=== PATIENT | female | born 1985 | race Caucasian/White ===

== ENCOUNTER 2018-03-25 10:58 | Emergency (ER) | payer SELFPAY ==
--- NOTE | 2018-03-25 11:36 | ER ---
Nurse's Notes [facility] Name: Tana Knight Age: 32 yrs Sex: Female : 1985 Arrival Date: 03/25/2018 Time: 11:02 Bed 20 Private MD: Diagnosis: Urinary tract infection, site not specified Presentation: 03/25 11:06 Presenting complaint: Patient states: "I have a UTI and I need antibiotics". Transition lk1 of care: patient was not received from another setting of care. Onset of symptoms was March 18, 2018. Risk Assessment: Do you want to hurt yourself or someone else? Patient reports no desire to harm self or others. Initial Sepsis Screen: Does the patient meet any 2 criteria? No. Patient's initial sepsis screen is negative. Does the patient have a suspected source of infection? No. Patient's initial sepsis screen is negative. Care prior to arrival: None. 11:06 Method Of Arrival: Ambulatory lk1 11:06 Acuity: RADHA 4 lk1 Triage Assessment: 11:07 General: Appears in no apparent distress. Behavior is calm, cooperative, appropriate lk1 for age. Pain: Complains of pain in suprapubic area Pain currently is 5 out of 10 on a pain scale. Quality of pain is described as burning. : Reports burning with urination, cramping, incontinence, pain urgency, urinary frequency. 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 - Social history:: Smoking status: Patient/guardian denies using tobacco. Screenin:20 Abuse screen: Denies threats or abuse. Nutritional screening: No deficits noted. em Tuberculosis screening: No symptoms or risk factors identified. Fall Risk None identified. Assessment: 11:20 General: Appears in no apparent distress. comfortable, Behavior is calm, cooperative. em Pain: Complains of pain in suprapubic area Pain currently is 5 out of 10 on a pain scale. Neuro: Level of Consciousness is awake, alert, obeys commands, Oriented to person, place, time, situation. Cardiovascular: Capillary refill < 3 seconds Patient's skin is warm and dry. Respiratory: Airway is patent Respiratory effort is even, unlabored, Respiratory pattern is regular, symmetrical. GI: Abdomen is flat, Patient currently denies pain. : Reports burning with urination, "pressure". EENT: No signs and/or symptoms were reported regarding the EENT system. Derm: Skin is intact, Skin is pink, warm \\T\\ dry. Musculoskeletal: Range of motion: intact in all extremities. 11:30 Reassessment: I agree with above assessment by Braeden Mckeon LVN. iw Vital Signs: 11:08 BP 122 / 90; Pulse 79; Resp 15; Temp 97.0(TE); Pulse Ox 100% on R/A; Weight 65.77 kg lk1 (R); Height 5 ft. 3 in. (160.02 cm) (R); Pain 4/10; 11:08 Body Mass Index 25.69 (65.77 kg, 160.02 cm) lk1 ED Course: 11:02 Patient arrived in ED. mr 11:07 Triage completed. lk1 11:08 [facility]C [facility] kb 11:08 Saturnino Rice MD is Attending Physician. kb 11:11 Arm band placed on right wrist. lk1 11:22 Braeden Mckeon LVN is Primary Nurse. em 11:57 Patient has correct armband on for positive identification. em 11:57 No provider procedures requiring assistance completed. Patient did not have IV access em during this emergency room visit. Administered Medications: 11:50 Drug: Macrobid 100 mg Route: PO; em 11:58 Follow up: Response: Medication administered at discharge. em 11:50 Drug: Pyridium 200 mg Route: PO; em 11:58 Follow up: Response: Medication administered at discharge. em Outcome: 11:36 Discharge ordered by MD. kb 11:58 Discharged to home ambulatory. em 11:58 Condition: good 11:58 Discharge instructions given to patient, Instructed on discharge instructions, follow up and referral plans. medication usage, Demonstrated understanding of instructions, follow-up care, medications, Prescriptions given X 2. 11:59 Patient left the ED. em Signatures: Kaylie Garcia FNP-C FNP-Leti Raphael mr Braeden Mckeon LVN LVN em Bekah Cavazos RN RN iw Kluge, Jenni, RN RN lk1
--- NOTE | 2018-03-25 11:36 | EDPHYS ---
Physician Documentation [facility] Name: Tana Knight Age: 32 yrs Sex: Female : 1985 Arrival Date: 03/25/2018 Time: 11:02 Bed 20 Private MD: ED Physician Saturnino Rice HPI: 03/25 11:31 This 32 yrs old Female presents to ER via Ambulatory with complaints of kb Urinary Problem. 11:34 The patient presents with urinary symptoms, dysuria, frequency. Onset: The kb symptoms/episode began/occurred 3 week(s) ago. Modifying factors: The symptoms are alleviated by nothing, the symptoms are aggravated by urinating. Associated signs and symptoms: Pertinent positives: cramping, dysuria, urinary frequency, Pertinent negatives: constipation, diarrhea, dyspareunia, fever, hematuria, nausea, vaginal bleeding, vaginal discharge, vomiting. Severity of symptoms: At their worst the symptoms were moderate, in the emergency department the symptoms are unchanged. The patient has not experienced similar symptoms in the past. The patient has not recently seen a physician. Pt states she started having some cramping to her lower abd a few days ago and yesterday started having UTI symptoms. Reports burning with urination and urinary frequency. . 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 - Social history:: Smoking status: Patient/guardian denies using tobacco. ROS: 11:31 Constitutional: Negative for fever, chills, and weight loss, Cardiovascular: Negative kb for chest pain, palpitations, and edema, Respiratory: Negative for shortness of breath, cough, wheezing, and pleuritic chest pain, Abdomen/GI: Negative for abdominal pain, nausea, vomiting, diarrhea, and constipation, Back: Negative for injury and pain, MS/Extremity: Negative for injury and deformity, Skin: Negative for injury, rash, and discoloration, Neuro: Negative for headache, weakness, numbness, tingling, and seizure. 11:31 : Positive for urinary symptoms, urinary frequency, burning with urination. Exam: 11:31 Constitutional: This is a well developed, well nourished patient who is awake, alert, kb and in no acute distress. Head/Face: Normocephalic, atraumatic. Chest/axilla: Normal chest wall appearance and motion. Nontender with no deformity. No lesions are appreciated. Cardiovascular: Regular rate and rhythm with a normal S1 and S2. No gallops, murmurs, or rubs. Normal PMI, no JVD. No pulse deficits. Respiratory: Lungs have equal breath sounds bilaterally, clear to auscultation and percussion. No rales, rhonchi or wheezes noted. No increased work of breathing, no retractions or nasal flaring. Abdomen/GI: Soft, non-tender, with normal bowel sounds. No distension or tympany. No guarding or rebound. No evidence of tenderness throughout. Back: No spinal tenderness. No costovertebral tenderness. Full range of motion. Skin: Warm, dry with normal turgor. Normal color with no rashes, no lesions, and no evidence of cellulitis. MS/ Extremity: Pulses equal, no cyanosis. Neurovascular intact. Full, normal range of motion. Neuro: Awake and alert, GCS 15, oriented to person, place, time, and situation. Cranial nerves II-XII grossly intact. Motor strength 5/5 in all extremities. Sensory grossly intact. Cerebellar exam normal. Normal gait. 11:31 Abdomen/GI: Palpation: pressure over suprapubic area upon palpation. Vital Signs: 11:08 BP 122 / 90; Pulse 79; Resp 15; Temp 97.0(TE); Pulse Ox 100% on R/A; Weight 65.77 kg lk1 (R); Height 5 ft. 3 in. (160.02 cm) (R); Pain 4/10; 11:08 Body Mass Index 25.69 (65.77 kg, 160.02 cm) lk1 MDM: 11:12 Patient medically screened. kb 11:32 Data reviewed: vital signs, nurses notes. Data interpreted: Pulse oximetry: on room air kb is 100 %. Interpretation: normal. Counseling: I had a detailed discussion with the patient and/or guardian regarding: the historical points, exam findings, and any diagnostic results supporting the discharge/admit diagnosis, lab results, the need for outpatient follow up, a family practitioner, to return to the emergency department if symptoms worsen or persist or if there are any questions or concerns that arise at home. 03/25 11:09 Order name: Urine Microscopic Only kb 03/25 11:46 Order name: Urine Dipstick--Ancillary (enter results) bd 03/25 11:09 Order name: Urine Test (obtain specimen); Complete Time: 11:45 kb 03/25 11:46 Order name: Urine --Ancillary (enter results) bd 03/25 11:09 Order name: Urine Dipstick-Ancillary (obtain specimen); Complete Time: 11:45 kb Administered Medications: 11:50 Drug: Macrobid 100 mg Route: PO; em 11:58 Follow up: Response: Medication administered at discharge. em 11:50 Drug: Pyridium 200 mg Route: PO; em 11:58 Follow up: Response: Medication administered at discharge. em Disposition: 14:34 Co-signature as Attending Physician, Saturnino Rice MD. rn Disposition: 03/25/18 11:36 Discharged to Home. Impression: Urinary tract infection, site not specified. - Condition is Stable. - Discharge Instructions: Urinary Tract Infection, [id number]. - Prescriptions for Pyridium 200 mg Oral Tablet - take 1 tablet by ORAL route every 8 hours for 3 days; 9 tablet. Macrobid 100 mg Oral Capsule - take 1 capsule by ORAL route every 12 hours for 7 days; 14 capsule. - Medication Reconciliation Form, Thank You Letter, Antibiotic Education, Prescription Opioid Use, Work release form form. - Follow up: Emergency Department; When: As needed; Reason: Worsening of condition. Follow up: Private Physician; When: 2 - 3 days; Reason: Recheck today's complaints, Continuance of care, Re-evaluation by your physician. Signatures: Dispatcher [employer] Kaylie Youngblood, VIDEO PHOTOGRAPHER-C VIDEO PHOTOGRAPHER-Ckb Braeden Mckeon, MATERIAL HANDLER FLOORPERSON MATERIAL HANDLER FLOORPERSON em Saturnino Rice MD MD rn Kluge, Leah, RN RN lk1 Corrections: (The following items were deleted from the chart) 11:59 11:36 03/25/2018 11:36 Discharged to Home. Impression: Urinary tract infection, site em not specified. Condition is Stable. Forms are Medication Reconciliation Form, Thank You Letter, Antibiotic Education, Prescription Opioid Use. Follow up: Emergency Department; When: As needed; Reason: Worsening of condition. Follow up: Private Physician; When: 2 - 3 days; Reason: Recheck today's complaints, Continuance of care, Re-evaluation by your physician. kb
[2018-03-25] MEDS ORDERED: NITROFURAN MACRO 100 MG CAP PO ONE (11:47)
[2018-03-25] MEDS ORDERED: PHENAZOPYRIDINE 100MG TAB PO ONE (11:47)
[2018-03-25 12:47] LABS: Urine Bacteria <20 /HPF (<20); Urine Culture Reflex Order NOT NEEDED; Urine RBC <5 /HPF (NONE SEEN)
[2018-03-25 13:11] LABS: Urine Blood NEGATIVE (NEG); Urine Glucose NEGATIVE (NEG); Urine Protein NEGATIVE (NEG); Urine Specific Gravity 1.015 (1.005-1.030); Urine pH 7.5 (5.0-7.0)
== END 2018-03-25 11:59 | disposition home or self-care (01) ==
LOC: ER 10:58
DX: N39.0 Urinary tract infection, site not specified (principal)
CPT/HCPCS: 81003; 81015; 81025; 99283

== ENCOUNTER 2021-05-26 02:28 | Emergency (ER) | payer SELFPAY ==
--- NOTE | 2021-05-26 05:14 | ER ---
Nurse's Notes [facility] Name: Tana Garcia Age: 35 yrs Sex: Female : 1985 Arrival Date: 05/26/2021 Time: 02:33 Bed 26 Private MD: Jeremiah Bain E Diagnosis: SARS-associated coronavirus as the cause of diseases classified elsewhere Presentation: 05/26 03:05 Chief complaint: Patient states: cough, congestion, loss of smell and taste, body em aches, coworker tested positive fot covid on symptoms stated 26 hours ago. Coronavirus screen: Client presents with at least one sign or symptom that may indicate coronavirus-19. Standard/surgical mask placed on the client. Provider contacted for isolation considerations. Ebola Screen: Patient negative for fever greater than or equal to 101.5 degrees Fahrenheit, and additional compatible Ebola Virus Disease symptoms Patient denies exposure to infectious person. Patient denies travel to an Ebola-affected area in the 21 days before illness onset. No symptoms or risks identified at this time. Resp Distress? No respiratory distress is noted at this time. Initial Sepsis Screen: Does the patient meet any 2 criteria? No. Patient's initial sepsis screen is negative. Does the patient have a suspected source of infection? No. Patient's initial sepsis screen is negative. Risk Assessment: Do you want to hurt yourself or someone else? Patient reports no desire to harm self or others. Onset of symptoms was May 26, 2021. 03:05 Method Of Arrival: Ambulatory em 03:05 Acuity: RADHA 4 em Historical: - Allergies: 03:08 No Known Allergies; em - PMHx: 03:08 None; em - PSHx: 03:08 None; em - Immunization history:: Client reports having NOT received the Covid vaccine. - Social history:: Smoking status: Patient denies any tobacco usage or history of. - Family history:: not pertinent. - Hospitalizations: : No recent hospitalization is reported. Screenin:05 Abuse screen: Denies threats or abuse. Nutritional screening: No deficits noted. em Tuberculosis screening: No symptoms or risk factors identified. Fall Risk None identified. Assessment: 03:05 General: Appears in no apparent distress. comfortable, Behavior is calm, cooperative, em appropriate for age, Reports fever for. Pain: Denies pain. Neuro: Level of Consciousness is awake, alert, obeys commands, Oriented to person, place, time, situation. Cardiovascular: Capillary refill < 3 seconds Patient's skin is warm and dry. Respiratory: Reports shortness of breath cough that is Airway is patent Respiratory effort is even, unlabored, Respiratory pattern is regular, symmetrical. GI: Patient currently denies nausea, vomiting. EENT: Nares are clear Oral mucosa is moist. Throat is clear Reports nasal congestion. Derm: Skin is intact, is healthy with good turgor, Skin is pink, warm \T\ dry. Musculoskeletal: Capillary refill < 3 seconds, Range of motion: intact in all extremities. Vital Signs: 03:05 Pulse 95; Resp 20; Temp 98.0; Pulse Ox 98% on R/A; Weight 68.04 kg; Height 5 ft. 3 in. em (160.02 cm); Pain 0/10; 03:12 BP 138 / 103; em 03:05 Body Mass Index 26.57 (68.04 kg, 160.02 cm) em ED Course: 02:33 Patient arrived in ED. es 02:34 Jeremiah Bain MD is Private Physician. es 03:05 Patient has correct armband on for positive identification. Bed in low position. em 03:08 Triage completed. em 03:08 Arm band placed on. em 03:43 Saturnino Rice MD is Attending Physician. rn 03:43 Braeden Mckeon RN is Primary Nurse. em 04:11 XRAY Chest (1 view) In Process Unspecified. EDMS 05:29 No provider procedures requiring assistance completed. Patient did not have IV access em during this emergency room visit. Administered Medications: 05:18 Drug: SOLU-Medrol (methylPREDNISolone sodium succinate) 125 mg Route: IM; Site: right em gluteus; 05:30 Follow up: Response: No adverse reaction em Outcome: 05:14 Discharge ordered by . rn 05:29 Discharged to home ambulatory. em 05:29 Condition: stable 05:29 Discharge instructions given to patient, Instructed on discharge instructions, follow up and referral plans. medication usage, Demonstrated understanding of instructions, follow-up care, medications, Prescriptions given X 1. 05:30 Patient left the ED. em Signatures: Dispatcher [employer] EDBrittany Villalpando Edgar, RN RN em Saturnino Rice MD MD rn
--- NOTE | 2021-05-26 05:14 | EDPHYS ---
Physician Documentation [facility] Name: Tana Garcia Age: 35 yrs Sex: Female : 1985 Arrival Date: 05/26/2021 Time: 02:33 Bed 26 Private MD: Jeremiah Bain E ED Physician Saturnino Rice HPI: 05/26 05:07 This 35 yrs old Female presents to ER via Ambulatory with complaints of rn Non-Productive Cough, Fever, Congestion. 05:07 The patient or guardian reports cough, described as moderate, with no sputum, flu rn symptoms, low-grade fever, myalgias. 05:07 Onset: The symptoms/episode began/occurred 4 day(s) ago. Severity of symptoms: At their rn worst the symptoms were mild, in the emergency department the symptoms are unchanged. Modifying factors: The symptoms are alleviated by nothing, the symptoms are aggravated by nothing. Associated signs and symptoms: Pertinent positives: fever, rhinorrhea, Pertinent negatives: chest pain. The patient has not experienced similar symptoms in the past. The patient has not recently seen a physician. Reports exposure to coworker with Covid recently. Symptoms began approximately 4 to 5 days ago with cough congestion mild shortness of breath, muscle aches and fatigue. Non-smoker.. Historical: - Allergies: 03:08 No Known Allergies; em - PMHx: 03:08 None; em - PSHx: 03:08 None; em - Immunization history:: Client reports having NOT received the Covid vaccine. - Social history:: Smoking status: Patient denies any tobacco usage or history of. - Family history:: not pertinent. - Hospitalizations: : No recent hospitalization is reported. ROS: 05:07 Constitutional: Positive for fever and chills Eyes: Negative for injury, pain, redness, rn and discharge, ENT: Negative for injury, pain, and discharge, Neck: Negative for injury, pain, and swelling, Cardiovascular: Negative for chest pain, palpitations, and edema, Respiratory: Positive for cough and mild shortness of breath Abdomen/GI: Negative for abdominal pain, nausea, vomiting, diarrhea, and constipation, Back: Negative for injury and pain, MS/Extremity: Negative for injury and deformity, Skin: Negative for injury, rash, and discoloration, Neuro: Positive for generalized weakness and fatigue Exam: 05:07 Constitutional: This is a well developed, well nourished patient who is awake, alert, rn and in no acute distress. Intermittent coughing but overall laughing and well-appearing Head/Face: Normocephalic, atraumatic. Eyes: Periorbital areas with no swelling, redness, or edema. Cardiovascular: Regular rate and rhythm. No pulse deficits. Respiratory: Diminished breath sounds bilaterally. No increased work of breathing, no retractions or nasal flaring. Skin: Warm, dry MS/ Extremity: Pulses equal, no cyanosis. Neuro: Awake and alert, GCS 15 Vital Signs: 03:05 Pulse 95; Resp 20; Temp 98.0; Pulse Ox 98% on R/A; Weight 68.04 kg; Height 5 ft. 3 in. em (160.02 cm); Pain 0/10; 03:12 BP 138 / 103; em 03:05 Body Mass Index 26.57 (68.04 kg, 160.02 cm) em MDM: 03:43 Patient medically screened. rn 05:07 Differential Diagnosis: Bronchitis Influenza Upper Respiratory Infection Viral Syndrome rn Pneumonia Other Covid. Data reviewed: vital signs, nurses notes, lab test result(s), radiologic studies, plain films, and as a result, I will discharge patient. Counseling: I had a detailed discussion with the patient and/or guardian regarding: the historical points, exam findings, and any diagnostic results supporting the discharge/admit diagnosis, lab results, radiology results, the need for outpatient follow up, to return to the emergency department if symptoms worsen or persist or if there are any questions or concerns that arise at home. Special discussion: I discussed with the patient/guardian in detail that at this point there is no indication for admission to the hospital. It is understood, however, that if the symptoms persist or worsen the patient needs to return immediately for re-evaluation. ED course: Patient tested positive for Covid, no oxygen requirement, not toxic appearing, will DC home with steroids and return precautions.. 05/26 03:12 Order name: Strep em 05/26 03:12 Order name: Flu; Complete Time: 05: 05/26 03:12 Order name: Group A Streptococcus Rapid Sc; Complete Time: 05: EDIA 05/26 04:54 Order name: SARS-COV-2 RT PCR; Complete Time: 05:01 EDIA 05/26 04:56 Order name: Throat Culture EDIA 05/26 03:51 Order name: XRAY Chest (1 view) rn Administered Medications: 05:18 Drug: SOLU-Medrol (methylPREDNISolone sodium succinate) 125 mg Route: IM; Site: right em gluteus; 05:30 Follow up: Response: No adverse reaction em Disposition Summary: 05/26/21 05:14 Discharge Ordered Location: Home rn Problem: new rn Symptoms: are unchanged rn Condition: Stable rn Diagnosis - SARS-associated coronavirus as the cause of diseases classified elsewhere rn Followup: rn - With: Private Physician - When: As needed - Reason: Recheck today's complaints, Re-evaluation by your physician Discharge Instructions: - Discharge Summary Sheet rn - COVID-19 rn - COVID-19 Frequently Asked Questions rn - 10 Things You Can Do to Manage Your COVID-19 Symptoms at Home - [facility] rn Forms: - Medication Reconciliation Form rn - Thank You Letter rn - Antibiotic fingernail technician - Prescription Opioid Use rn Prescriptions: - Prednisone 20 mg Oral Tablet - take 1 tablet by ORAL route as directed for 14 days Take to tablets by mouth rn daily for 7 days, followed by 1 tablet by mouth daily for 7 days.; 21 tablet; Refills: 0, Product Selection Permitted Signatures: Dispatcher [employer] Braeden Moyer RN RN Saturnino Rutledge MD MD sample patternmaker: (The following items were deleted from the chart) 03:26 03:12 CORONAVIRUS+BRZ ordered. [facility]
[2021-05-26] MEDS ORDERED: METHYLPREDNISOLONE 125 MG INJ ONE (05:35)
[2021-05-26 05:49] VITALS: TEMP 98; O2SAT 98
[2021-05-26 05:50] VITALS: BP 138/103
--- NOTE | 2021-05-26 07:13 | RAD REPORT ---
EXAM DESCRIPTION: RAD - Chest Single View - 05/26/2021 4:12 am CLINICAL HISTORY: COUGH COMPARISON: No comparisons FINDINGS: No evidence of edema or pneumonia. The heart size is within normal limits.No acute osseous abnormality. No significant pleural effusions or pneumothorax. IMPRESSION: No acute cardiopulmonary disease.
== END 2021-05-26 05:30 | disposition home or self-care (01) ==
LOC: ER 02:28
DX: U07.1 COVID-19 (principal)
CPT/HCPCS: 71045; 87070; 87081; 87804; 96372; 99283; J2930; U0003

== ENCOUNTER 2024-03-03 22:15 | Emergency (ER) | payer OTHER, SELFPAY ==
[2024-03-03] MEDS ORDERED: ONDANSETRON 4 MG/2 ML VIAL ONE (23:14)
[2024-03-03] MEDS ORDERED: KETOROLAC 30 MG/ML INJ ONE (23:15)
[2024-03-03] MEDS ORDERED: DICYCLOMINE HCL 10 MG CAP ONE (23:15)
[2024-03-03 23:41] LABS: Absolute Basophils 0.1 K/uL (0-0.5); Absolute Lymphocytes (CBC) 2.2 K/uL (0.7-4.9); Absolute Monocytes 0.6 K/uL (0.1-1.3); Absolute Neutrophil 4.8 K/uL (1.8-8.0); Eosinophils % 0.3 % (0-4.4); Hematocrit 39.3 % (36.0-45.0); Lymphocytes % 29.1 % (15.3-44.8); MCH 27.6 pg (27.0-35.0); MCHC 33.1 g/dL (32.0-36.0); MCV 83.6 fL (80-100); MPV 10.3 fL (7.6-11.3); Monocytes % 7.2 % (3.3-12.3); Neutrophils % 62.4 % (41.7-73.7); Nucleated Red Blood Cells % 0.2 % (0-0); Platelets 285 thou/uL (152-406); RBC Red Blood Cell Count 4.69 M/uL (3.86-4.86); Red Cell Distribution Width 14.1 % (12.1-15.2)
[2024-03-03 23:53] LABS: Albumin 4.1 g/dL (3.4-5.0); Anion Gap 9.5 mEq/L (5.0-15.0); Bilirubin Total 1.8 mg/dL (0.2-1.0); Potassium 3.5 mEq/L (3.5-5.1); Protein, Total 8.1 g/dL (6.4-8.2)
[2024-03-04 00:20] LABS: Sqamous Epithelial <5 /HPF (None Seen); Urine Bacteria None Seen /HPF (<20); Urine Bilirubin NEGATIVE (Negative); Urine Blood Negative (Negative); Urine Clarity Clear (Clear); Urine Color Light-Yellow (Yellow); Urine Culture Reflex Order NOT NEEDED; Urine Glucose NEGATIVE (Negative); Urine Ketones NEGATIVE (Negative); Urine Microscopic Reflex YN ORDER UMIC; Urine Mucus 4+ /HPF (None Seen); Urine Nitrite NEGATIVE (Negative); Urine Protein TRACE (Negative); Urine RBC <5 /HPF (None Seen); Urine Urobilinogen Normal (Normal); Urine WBC <5 /HPF (<5)
[2024-03-04 00:21] LABS: Specific Gravity > 1.030 (1.005-1.030)
--- NOTE | 2024-03-04 01:06 | ER ---
Nurse's Notes [facility] Name: Tana Garcia Age: 38 yrs Sex: Female : 1985 Arrival Date: 03/03/2024 Time: 22:15 Bed 12 Private MD: Diagnosis: Acute abdominal pain, acute pelvic pain, heterogenous appearing uterus Presentation: 03/03 22:28 Chief complaint: Patient states: epigastric pain radiating to RUQ and RLQ. complaints lg3 of nausea and burning. Coronavirus screen: Client denies travel out of the [place] in the last 14 days. At this time, the client does not indicate any symptoms associated with coronavirus-19. Ebola Screen: No symptoms or risks identified at this time. Risk Assessment: Do you want to hurt yourself or someone else? Patient reports no desire to harm self or others. Onset of symptoms was March 03, 2024. 22:28 Method Of Arrival: Ambulatory lg3 22:28 Acuity: RADHA 3 lg3 22:28 Initial Sepsis Screen: Does the patient meet any 2 criteria? No. Patient's initial lg3 sepsis screen is negative. Does the patient have a suspected source of infection? No. Patient's initial sepsis screen is negative. Triage Assessment: 22:30 General: Appears in no apparent distress. uncomfortable, Behavior is calm, cooperative. lg3 Pain: Complains of pain in epigastric area Pain radiates to right upper quadrant and right lower quadrant. EENT: No deficits noted. No signs and/or symptoms were reported regarding the EENT system. Neuro: No deficits noted. Thompson Agitation-Sedation Scale (RASS): 0 - Alert and Calm Level of Consciousness is awake, alert, obeys commands, Oriented to person, place, time, situation. Cardiovascular: No deficits noted. Denies chest pain, shortness of breath, Capillary refill < 3 seconds Clubbing of nail beds is absent JVD is absent Patient's skin is warm and dry. Respiratory: No deficits noted. Airway is patent Respiratory effort is even, unlabored, Respiratory pattern is regular, symmetrical. GI: Abdomen is round non-distended, Bowel sounds present X 4 quads. Abd is soft X 4 quads Abdomen is tender to palpation in right lower quadrant Reports lower abdominal pain, upper abdominal pain, cramping, epigastric pain, nausea. : No deficits noted. No signs and/or symptoms were reported regarding the genitourinary system. Derm: No deficits noted. No signs and/or symptoms reported regarding the dermatologic system. Skin is intact, is healthy with good turgor, Skin is dry, Skin is normal, Skin temperature is warm. Musculoskeletal: No deficits noted. No signs and/or symptoms reported regarding the musculoskeletal system. Circulation, motion, and sensation intact. Range of motion: intact in all extremities. 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 - Infectious Disease History:: Denies. - Social history:: Smoking status: Patient denies any tobacco usage or history of. Patient uses alcohol, occasionally. Patient/guardian denies using street drugs. - Family history:: not pertinent. Screenin:34 [facility] ED Fall Risk Assessment (Adult) History of falling in the last 3 months, lg3 including since admission No falls in past 3 months (0 pts) Confusion or Disorientation No (0 pts) Intoxicated or Sedated No (0 pts) Impaired Gait No (0 pts) Mobility Assist Device Used No (0 pt) Altered Elimination No (0 pt) Score/Fall Risk Level 0 - 2 = Low Risk Oriented to surroundings, Maintained a safe environment, Educated pt \T\ family on fall prevention, incl call for assistance when getting out of bed, Assessed \T\ reinforced patient's understanding of fall precautions. Abuse screen: Denies threats or abuse. Denies injuries from another. Nutritional screening: No deficits noted. Tuberculosis screening: No symptoms or risk factors identified. Assessment: 22:34 General: see triage assessment. lg3 03/04 00:47 Reassessment: Patient appears in no apparent distress at this time. No changes from lg3 previously documented assessment. Patient and/or family updated on plan of care and expected duration. Pain level reassessed. Patient is alert, oriented x 3, equal unlabored respirations, skin warm/dry/pink. 01:06 Reassessment: Patient appears in no apparent distress at this time. No changes from lg3 previously documented assessment. Patient and/or family updated on plan of care and expected duration. Pain level reassessed. Patient is alert, oriented x 3, equal unlabored respirations, skin warm/dry/pink. Patient states feeling better. Patient states symptoms have improved. Vital Signs: 03/03 22:42 BP 123 / 87; Pulse 77; Resp 18 S; Temp 98.4(O); Pulse Ox 100% on R/A; Weight 65.77 kg lg3 (R); Height 5 ft. 3 in. (R); 03/04 01:06 BP 126 / 82; Pulse 71; Resp 17 S; Temp 98.2(O); Pulse Ox 100% on R/A; lg3 03/03 22:42 Body Mass Index 25.69 (65.77 kg, 160.02 cm) lg3 [place] Coma Score: 00:59 Eye Response: spontaneous(4). Motor Response: obeys commands(6). Verbal Response: sp4 oriented(5). Total: 15. ED Course: 03/03 22:16 Patient arrived in ED. jj6 22:30 Triage completed. lg3 22:30 Arm band placed on right wrist. lg3 22:34 Patient has correct armband on for positive identification. lg3 22:45 Michael Maier MD is Attending Physician. sp4 23:34 CT Abd/Pelvis - IV Contrast Only In Process Unspecified. EDMS 03/04 00:04 Transvaginal Study Probe In Process Unspecified. EDMS 01:04 Nel Grady MD is Referral Physician. sp4 01:06 No provider procedures requiring assistance completed. IV discontinued, intact, lg3 bleeding controlled, No redness/swelling at site. Pressure dressing applied. Administered Medications: 03/03 23:23 Drug: TORadol - Ketorolac IVP 30 mg IVP once Route: IVP; Site: right antecubital; vc1 03/04 00:47 Follow up: Response: No adverse reaction lg3 03/03 23:23 Drug: Ondansetron IVP 4 mg IVP once; over 2 minutes Route: IVP; Site: right antecubital;vc1 03/04 00:47 Follow up: Response: No adverse reaction lg3 03/03 23:23 Drug: Dicyclomine PO 20 mg PO once Route: PO; vc1 03/04 00:47 Follow up: Response: No adverse reaction lg3 Medication: 01:06 VIS not applicable for this client. lg3 Outcome: 01:05 Discharge ordered by sp4 01:06 Discharged to home ambulatory, lg3 01:06 Condition: stable 01:06 Discharge instructions given to patient, Instructed on discharge instructions, follow up and referral plans. medication usage, Demonstrated understanding of instructions, follow-up care, medications, Prescriptions given X 3, 01:08 Patient left the ED. lg3 Signatures: Dispatcher [employer] EDMS Sofy Campbell, RN RN lg3 Susie [id number] Madeline Meyers RN RN vc1 Michael Maier MD MD sp4 Corrections: (The following items were deleted from the chart) 00:04 00:00 In radiology for Pelvis Complete+US.RAD.BRZ. EDMS EDMS
--- NOTE | 2024-03-04 01:06 | EDPHYS ---
Physician Documentation [facility] Name: Tana Garcia Age: 38 yrs Sex: Female : 1985 Arrival Date: 03/03/2024 Time: 22:15 Bed 12 Private MD: ED Physician Michael Maier HPI: 03/04 00:59 This 38 yrs old Female presents to ER via Ambulatory with complaints of sp4 Abdominal Pain. 00:59 38-year-old female presents with 1 day of lower abdominal pain starting acutely. Last sp4 patient reported patient started in the epigastric area and then moved to the lower abdomen. Now patient reports right lower abdominal pain. Patient reported 1 episode of vomiting. Patient reports sporadic use of alcohol.. 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 - Infectious Disease History:: Denies. - Social history:: Smoking status: Patient denies any tobacco usage or history of. Patient uses alcohol, occasionally. Patient/guardian denies using street drugs. - Family history:: not pertinent. ROS: 03/04 00:59 Constitutional: Negative for fever, chills, and weight loss, positive for lower sp4 abdominal pain and vomiting All other systems are negative, Exam: 00:59 Constitutional: This is a well developed, well nourished patient who is awake, alert, sp4 and in no acute distress. Head/Face: Normocephalic, atraumatic. Eyes: Pupils equal round and reactive to light, extra-ocular motions intact. Lids and lashes normal. Conjunctiva and sclera are not injected. Cornea within normal limits. Periorbital areas with no swelling, redness, or edema. ENT: Nares patent. No nasal discharge, no septal abnormalities noted. Tympanic membranes are normal and external auditory canals are clear. Oropharynx with no redness, swelling, or masses, exudates, or evidence of obstruction, uvula midline. Mucous membranes moist. Neck: Trachea midline, no thyromegaly or masses palpated, and no cervical lymphadenopathy. Supple, full range of motion without nuchal rigidity, or vertebral point tenderness. Chest/axilla: Normal chest wall appearance and motion. Nontender with no deformity. No lesions are appreciated. Cardiovascular: Regular rate and rhythm with a normal S1 and S2. No gallops, murmurs, or rubs. Normal PMI, no JVD. No pulse deficits. Respiratory: Lungs have equal breath sounds bilaterally, clear to auscultation and percussion. No rales, rhonchi or wheezes noted. No increased work of breathing, no retractions or nasal flaring. Abdomen/GI: Soft, with normal bowel sounds. No distension or tympany. No guarding or rebound. No evidence of tenderness throughout. Back: No spinal tenderness. No costovertebral tenderness. Skin: Warm, dry with normal turgor. Normal color with no rashes, no lesions, and no evidence of cellulitis. MS/ Extremity: Pulses equal, no cyanosis. Neurovascular intact. Full, normal range of motion. Neuro: Awake and alert, GCS 15, oriented to person, place, time, and situation. Cranial nerves II-XII grossly intact. Motor strength 5/5 in all extremities. Sensory grossly intact. Psych: Awake, alert, with orientation to person, place and time. Behavior, mood, and affect are within normal limits Vital Signs: 03/03 22:42 BP 123 / 87; Pulse 77; Resp 18 S; Temp 98.4(O); Pulse Ox 100% on R/A; Weight 65.77 kg lg3 (R); Height 5 ft. 3 in. (R); 03/04 01:06 BP 126 / 82; Pulse 71; Resp 17 S; Temp 98.2(O); Pulse Ox 100% on R/A; lg3 03/03 22:42 Body Mass Index 25.69 (65.77 kg, 160.02 cm) lg3 [place] Coma Score: 00:59 Eye Response: spontaneous(4). Motor Response: obeys commands(6). Verbal Response: sp4 oriented(5). Total: 15. MDM: 03/03 22:47 Patient medically screened. sp4 03/04 00:59 ED course: TECHNIQUE: Axial computed tomography images of the abdomen and pelvis with sp4 intravenous contrast. Sagittal and coronal reformatted images were created and reviewed. This CT exam was performed using one or more of the following dose reduction techniques: automated exposure control, adjustment of the mA and/or kV according to patient size, and/or use of iterative reconstruction technique. COMPARISON: No relevant prior studies available. FINDINGS: LUNG BASES: Unremarkable No mass. No consolidation. ABDOMEN: LIVER: Unremarkable No mass. GALLBLADDER AND BILE DUCTS: Unremarkable No calcified stones. No ductal dilation. PANCREAS: Unremarkable No mass. No ductal dilation. SPLEEN: Unremarkable No splenomegaly. ADRENALS: Unremarkable No mass. KIDNEYS AND URETERS: Unremarkable No solid mass. No hydronephrosis. STOMACH AND BOWEL: Unremarkable No obstruction. No mucosal thickening. PELVIS: APPENDIX: No findings to suggest acute appendicitis. BLADDER: Unremarkable No mass. REPRODUCTIVE: Enlarged heterogenous appearance of the uterus with fluid attenuation within the endometrial cavity. Indeterminate and likely within physiologic limits. ABDOMEN and PELVIS: INTRAPERITONEAL SPACE: Unremarkable No free air. No significant fluid collection. BONES/JOINTS: No acute fracture. No dislocation. SOFT TISSUES: Unremarkable VASCULATURE: Unremarkable No abdominal aortic aneurysm. LYMPH NODES: Unremarkable No enlarged lymph nodes. TUBES, LINES AND DEVICES: Bilateral tubal ligation devices demonstrated. IMPRESSION: 1. Enlarged heterogenous appearance of the uterus with fluid attenuation within the endometrial cavity. Indeterminate and likely within physiologic limits. Recommend correlation with patient's menses cycle. 2. No definite acute abnormality of the abdomen or pelvis. . 00:59 Differential Diagnosis altered mental status, sepsis, flu. Data reviewed: vital signs, sp4 nurses notes, lab test result(s), radiologic studies, CT scan, ultrasound. ED course: . 01:04 Consideration of Admission/Observation Escalation of care including sp4 admission/observation considered. ED course: PROCEDURE: US Pelvis Transvaginal CLINICAL INDICATION: The patient is 38 years old and is Female; Right lower pain Bed Name: IW3 TECHNIQUE: Real-time transvaginal pelvic ultrasound with image documentation. Transvaginal imaging was used for better evaluation of the endometrium and adnexa. COMPARISON: 03/03/2024 CT abdomen pelvis with contrast FINDINGS: UTERUS/CERVIX: Nabothian cysts incidentally noted, measuring up to 1.4 cm. No dedicated imaging follow-up recommended. Retroverted uterus measures 7.8 x 4.9 x 6.1 cm. No myometrial mass. The endometrial stripe measures 0.6 cm in thickness. RIGHT OVARY: The right ovary measures 4.6 x 1.4 x 2.4 cm. Normal blood flow. LEFT OVARY: 1.8 x 1.4 x 1.4 cm left ovarian cyst. 1.4 x 1 x 1.2 cm right ovarian cyst. No dedicated imaging follow-up recommended. Normal blood flow. The left ovary measures 2.8 x 1.8 x 2 cm. FREE FLUID: No abnormal adnexal masses or free fluid appreciated. BLADDER: Empty bladder which cannot be evaluated with this probe. IMPRESSION: No acute findings in the pelvis. No evidence of torsion. Electronically signed by: Fausto Travis MD 03/04/2024 12:16 AM. 03/03 22:46 Order name: CBC with Diff; Complete Time: 00:56 sp4 03/03 22:46 Order name: CMP; Complete Time: 00:56 sp4 03/03 22:46 Order name: Lipase; Complete Time: 00:56 sp4 03/03 22:46 Order name: Test, Urine; Complete Time: 00:56 sp4 03/03 22:46 Order name: Urinalysis w/ reflexes; Complete Time: 00:56 sp4 03/03 22:46 Order name: CT Abd/Pelvis - IV Contrast Only sp4 03/04 00:04 Order name: Transvaginal Study Probe [facility] 03/03 22:46 Order name: IV Saline Lock; Complete Time: 23:24 sp4 03/03 22:46 Order name: Labs collected and sent; Complete Time: 23:24 sp4 Administered Medications: 03/03 23:23 Drug: TORadol - Ketorolac IVP 30 mg IVP once Route: IVP; Site: right antecubital; vc1 03/04 00:47 Follow up: Response: No adverse reaction 3 03/03 23:23 Drug: Ondansetron IVP 4 mg IVP once; over 2 minutes Route: IVP; Site: right antecubital;vc1 03/04 00:47 Follow up: Response: No adverse reaction 3 03/03 23:23 Drug: Dicyclomine PO 20 mg PO once Route: PO; vc1 03/04 00:47 Follow up: Response: No adverse reaction lg3 Disposition Summary: 03/04/24 01:05 Discharge Ordered Notes: Location: Home sp4 Problem: new sp4 Symptoms: have improved sp4 Condition: Stable sp4 Diagnosis - Acute abdominal pain, acute pelvic pain, heterogenous appearing uterus sp4 Followup: sp4 - With: Nel Grady MD - When: 7 - 10 days - Reason: Recheck today's complaints Discharge Instructions: - Discharge Summary Sheet sp4 - Pelvic Pain, Female, [id number] sp4 Forms: - Patient Portal Instructions sp4 Prescriptions: - meloxicam 15 mg Oral tablet - take 1 tablet ORAL route daily PRN pain; 30 tablet; Refills: 0, Product sp4 Selection Permitted - Tramadol 50 mg Oral tablet - take 1 tablet ORAL route every 8 hours as needed; 20 tablet; Refills: 0, sp4 Product Selection Permitted - promethazine 25 mg Oral tablet - take 1 tablet ORAL route every 6 hours As needed; 30 tablet; Refills: 0, sp4 Product Selection Permitted Signatures: Dispatcher [employer] EDMS Sofy Campbell, RN RN lg3 Madeline Meyers RN RN vc1 Michael Maier MD MD sp4 Corrections: (The following items were deleted from the chart) 03/03 22:47 22:46 CBC+H.LAB.BRZ ordered. EDMS EDMS 22:47 22:46 COMPREHENSIVE METABOLIC PANEL+C.LAB.BRZ ordered. EDMS EDMS 22:47 22:46 LIPASE+C.LAB.BRZ ordered. EDMS EDMS 22:47 22:46 Test, Urine+UC.LAB.BRZ ordered. EDMS EDMS 22:47 22:46 Urinalysis+U.LAB.BRZ ordered. EDMS EDMS 03/04 00:04 03/03 22:47 Pelvis Complete+US.RAD.BRZ ordered. EDMS EDMS
--- NOTE | 2024-03-04 14:55 | RAD REPORT ---
EXAM DESCRIPTION: CT - Abdomen Pelvis W Contrast - 03/04/2024 6:37 am CLINICAL HISTORY: The patient is 38 years old and is Female; ABD PAIN IV ONLY Bed Name: IW3 TECHNIQUE: Axial computed tomography images of the abdomen and pelvis with intravenous contrast. S agittal and coronal reformatted images were created and reviewed. This CT exam was performed using one or more of the following dose reduction techniques: automated exposure control, adjustment of t he mA and/or kV according to patient size, and/or use of iterative reconstruction technique. COMPARISON: No relevant prior studies available. FINDINGS: LUNG BASES: Unremarkable No mass. No consolidation. ABDOMEN: LIVER: Unremarkable No mass. GALLBLADDER AND BILE DUCTS: Unremarkable No calcified stones. No ductal dilation. PANCREAS: Unremarkable No mass. No ductal dilation. SPLEEN: Unremarkable No splenomegaly. ADRENALS: Unremarkable No mass. KIDNEYS AND URETERS: Unremarkable No solid mass. No hydronephrosis. STOMACH AND BOWEL: Unremarkable No obstruction. No mucosal thickening. PELVIS: APPENDIX: No findings to suggest acute appendicitis. BLADDER: Unremarkable No mass. REPRODUCTIVE: Enlarged heterogenous appearance of the uterus with fluid attenuation within the endome trial cavity. Indeterminate and likely within physiologic limits. ABDOMEN and PELVIS: INTRAPERITONEAL SPACE: Unremarkable No free air. No significant fluid collection. BONES/JOINTS: No acute fracture. No dislocation. SOFT TISSUES: Unremarkable VASCULATURE: Unremarkable No abdominal aortic aneurysm. LYMPH NODES: Unremarkable No enlarged lymph nodes. TUBES, LINES AND DEVICES: Bilateral tubal ligation devices demonstrated. IMPRESSION: 1. Enlarged heterogenous appearance of the uterus with fluid attenuation within the en dometrial cavity. Indeterminate and likely within physiologic limits. Recommend correlation with emelina ent's menses cycle. 2. No definite acute abnormality of the abdomen or pelvis. Electronically signed by: Fausto Travis MD 03/04/2024 12:11 AM CDT Due to temporary technical issues with the PACS/Fluency reporting system, reports are being signed by the in house radiologists without review as a courtesy to insure prompt reporting. The interpreting radiologist is fully responsible for the content of the report.
--- NOTE | 2024-03-04 15:43 | RAD REPORT ---
EXAM DESCRIPTION: US - Transvaginal Study Probe - 03/04/2024 12:03 am CLINICAL HISTORY: The patient is 38 years old and is Female; Right lower pain Bed Name: IW3 TECHNIQUE: Real-time transvaginal pelvic ultrasound with image documentation. Transvaginal imaging was used for better evaluation of the endometrium and adnexa. COMPARISON: 03/03/2024 CT abdomen pelvis with contrast FINDINGS: UTERUS/CERVIX: Nabothian cysts incidentally noted, measuring up to 1.4 cm. No dedicated imaging follow-up recommended. Retroverted uterus measures 7.8 x 4.9 x 6.1 cm. No myometrial mass. The endometrial stripe measures 0.6 cm in thickness. RIGHT OVARY: The right ovary measures 4.6 x 1.4 x 2.4 cm. Normal blood flow. LEFT OVARY: 1.8 x 1.4 x 1.4 cm left ovarian cyst. 1.4 x 1 x 1.2 cm right ovarian cyst. No dedicated imaging follow-up recommended. Normal blood flow. The left ovary measures 2.8 x 1.8 x 2 cm. FREE FLUID: No abnormal adnexal masses or free fluid appreciated. BLADDER: Empty bladder which cannot be evaluated with this probe. IMPRESSION: No acute findings in the pelvis. No evidence of torsion. Electronically signed by: Fausto Travis MD 03/04/2024 12:16 AM CDT Due to temporary technical issues with the PACS/Fluency reporting system, reports are being signed by the in house radiologists without review as a courtesy to insure prompt reporting. The interpreting radiologist is fully responsible for the content of the report.
== END 2024-03-04 01:08 | disposition home or self-care (01) ==
LOC: ER 22:15
DX: R10.30 Lower abdominal pain, unspecified (principal); R10.2 Pelvic and perineal pain; N85.8 Other specified noninflammatory disorders of uterus
CPT/HCPCS: 36415; 74177; 76830; 76856; 80053; 81001; 81025; 82565; 83690; 85025; 96374; 96375; 99284; J2405; Q9967